=== PATIENT | female | born 1985 | race Caucasian/White ===

== ENCOUNTER 2016-07-12 11:53 | Emergency (ER) | payer OTHER ==
[~2016-07-12] VITALS: Ht 160 cm; Wt 126.0 kg
[~2016-07-12 11:53] MED LIST: AMO500 PO; CIPR7.5D4 LEFT EAR; IBUP-1542 PO; TRAM50TA2 PO
[2016-07-12 11:59] VITALS: Ht 160 cm; Wt 126.0 kg
[2016-07-12] MEDS ORDERED: ONDANSETRON (ODT) 4 MG TAB ODT STA (13:41)
[2016-07-12] MEDS ORDERED: ACETAMINOPHEN 325 MG TAB PO ONE (14:00)
[2016-07-12 14:03] LABS: URINE BLOOD (Dip) POC Negative (NEGATIVE)
--- NOTE | 2016-07-12 14:33 | RADRPT ---
PROCEDURE: US Pelvis CLINICAL INDICATION: Pelvic pain TECHNIQUE: Sonographic evaluation of the pelvis was performed utilizing both transabdominal and tr ansvaginal technique. Curved array transabdominal transducer technique as well as a high frequency endovaginal probe was utilized. Images were reviewed on the high-resolution PACS workstation. COMPARISON: None available FINDINGS: The uterus is normal in size, echogenicity, and morphology measuring 9.7 x 4.5 x 4.8 cm in dimension . The uterus is anteverted in normal position. The endometrium measures 9.3 mm in diameter. The normal trilaminar stripe of the endometrium is preserved. The right ovary measures 3.5 x 2.1 x 2.2 cm in dimension. The left ovary measures 5.5 x 4.2 x 4.5 c m in dimension, and demonstrates a 4.1 cm minimally complex cyst, likely hemorrhagic cyst. No ovari an torsion, adnexal mass or pelvic free fluid is identified. IMPRESSION: 1. Minimally complex 4.1 cm left ovarian cyst, likely hemorrhagic cyst. 2. Otherwise unremarkable ultrasound exam. RPTAT: HH .Aaron Carrasco MD, Date Time Electronically viewed and signed by .Aaron Carrasco MD, MD on 07/12/2016 14:33 .R/
[2016-07-12] MEDS ORDERED: ONDA4TAB14 PO (14:45)
[2016-07-12] MEDS ORDERED: PHEN-537 PO (14:45)
--- NOTE | 2016-07-12 15:03 | ERD ---
ER Documentation Chief Complaint Date/Time DATE: 07/12/16 TIME: 14:59 Chief Complaint PAINFUL URINATION,VAGINAL PAIN HPI Patient is a 31-year-old female who presents to the ED with dysuria and pelvic pain and nausea on and off for 1 week. She states that she has not gotten her menstrual cycle for the last 3 months usually her menstrual cycles are every month. Denies vaginal bleeding or abnormal vaginal discharge. States that she is currently sexually active with one partner. Does not use protection. Denies vomiting or diarrhea. Last bowel movement was today. Denies headache or dizziness. Denies chest pain or cough or shortness of breath or difficulty breathing. Denies leg pain or leg swelling. Denies recent travel or recent surgeries. No history of DVT or clots. Patient states that she might be and wants a test. ROS All systems reviewed and are negative except as per history of present illness. Medications Home Meds Active Scripts Ondansetron (Ondansetron Odt) 4 Mg Tab.rapdis, 4 MG PO Q6H Y for NAUSEA AND/OR VOMITING, #10 TAB Prov:RALPH MILLARD PA-C 07/12/16 Phenazopyridine Hcl* (Pyridium*) 100 Mg Tab, 100 MG PO TID Y for URINARY PAIN, # 8 TAB Prov:RALPH MILLARD PA-C 07/12/16 Ciprofloxacin Hcl/Dexameth (Ciprodex Otic Suspension) 7.5 Ml Drops.susp, 4 DROP LEFT EAR BID for 7 Days, EA Prov:MADISON FUCHS PA-C 08/22/14 Amoxicillin* (Amoxicillin*) 500 Mg Cap, 500 MG PO TID for 7 Days, CAP Prov:MADISON FUCHS PA-C 08/22/14 Ibuprofen* (Motrin*) 600 Mg Tab, 600 MG PO Q6, #14 TAB Prov:MADISON FUCHS PA-C 08/22/14 Tramadol HCl (Tramadol HCl) 50 Mg Tab, 50 MG PO Q4 Y for PAIN, #14 TAB Prov:MADISON FUCHS PA-C 08/22/14 Allergies Allergies: Coded Allergies: No Known Allergy (Unverified , 08/22/14) PMhx/Soc Medical and Surgical Hx: pt denies Surgical Hx History of Surgery: No Anesthesia Reaction: No Hx Neurological Disorder: No Hx Respiratory Disorders: Yes (ASTHMA) Hx Cardiac Disorders: No Hx Psychiatric Problems: No Hx Miscellaneous Medical Probl: No Hx Alcohol Use: No Hx Substance Use: No Hx Tobacco Use: No Smoking Status: Never smoker FmHx Family History: No coronary disease, No diabetes, No other Physical Exam Vitals Vital Signs Date Time Temp Pulse Resp B/P Pulse Ox O2 Delivery O2 Flow Rate FiO2 07/12/16 11:59 98.0 80 18 137/69 98 Physical Exam GENERAL: Well-developed, well-nourished female. Appears in no acute distress. HEAD: Normocephalic, atraumatic. EYES: Pupils are equally reactive bilaterally. EOMs grossly intact. No conjunctival erythema. ENT: Moist mucous membranes. No uvula deviation. No kissing tonsils. No exudates. NECK: Supple. No lymphadenopathy or thyromegaly. No meningismus. negative kernig. negative brudinski. LUNG: Clear to auscultation bilaterally. No rhonchi, wheezing, rales or coarse breath sounds. HEART: Regular rate and rhythm. No murmurs, rubs or gallops. ABDOMEN: No scars, ecchymosis or rashes noted. Soft, nontender, and nondistended. Positive bowel sounds in all four quadrants. No rebound tenderness , no guarding. (-) McBurneys point tenderness. No CVA tenderness. Generalized tenderness. No focal tenderness. BACK: No midline tenderness. Extremities: Equal pulses bilaterally. No peripheral clubbing, cyanosis or edema. No unilateral leg swelling. NEUROLOGIC: Alert and oriented. Moving all four extremities. 5/5 strength in all extremities. Normal speech. Steady gait. SKIN: Normal color. Warm and dry. No rashes or lesions. Capillary refill < 2 seconds Results 24 hrs Laboratory Tests Test 07/12/16 14:06 Bedside Urine pH (LAB) 6.5 Bedside Urine Protein (LAB) Negative Bedside Urine Glucose (UA) Negative Bedside Urine Ketones (LAB) Negative Bedside Urine Blood Negative Bedside Urine Nitrite (LAB) Negative Bedside Urine Leukocyte Esterase (L Negative Current Medications Medications (Trade) Dose Ordered Sig/Kari Route PRN Reason Start Time Stop Time Status Last Admin Dose Admin Ondansetron HCl (Zofran Odt) 4 mg ONCE STAT ODT 07/12/16 13:41 07/12/16 13:43 DC 07/12/16 14:26 Acetaminophen (Tylenol Tab) 650 mg ONCE ONCE PO 07/12/16 14:00 07/12/16 14:01 DC 07/12/16 14:26 Procedures/MDM ER COURSE: I kept the patient and/or family informed of laboratory and diagnostic imaging results throughout the emergency room course. IMAGING STUDIES [place] [id number] [place] [id number] Radiology Main Line: [phone] DIAGNOSTIC IMAGING REPORT Patient: FRED ARNDT : 1985 Age: 31 Sex: F MR #: [id number] DOS: 07/12/16 1341 Ordering MD: RALPH MILLARD PA-C Location: [facility] Room/Bed: PROCEDURE: US Pelvis CLINICAL INDICATION: Pelvic pain TECHNIQUE: Sonographic evaluation of the pelvis was performed utilizing both transabdominal and transvaginal technique. Curved array transabdominal transducer technique as well as a high frequency endovaginal probe was utilized. Images were reviewed on the high-resolution PACS workstation. COMPARISON: None available FINDINGS: The uterus is normal in size, echogenicity, and morphology measuring 9.7 x 4.5 x 4.8 cm in dimension. The uterus is anteverted in normal position. The endometrium measures 9.3 mm in diameter. The normal trilaminar stripe of the endometrium is preserved. The right ovary measures 3.5 x 2.1 x 2.2 cm in dimension. The left ovary measures 5.5 x 4.2 x 4.5 cm in dimension, and demonstrates a 4.1 cm minimally complex cyst, likely hemorrhagic cyst. No ovarian torsion, adnexal mass or pelvic free fluid is identified. IMPRESSION: 1. Minimally complex 4.1 cm left ovarian cyst, likely hemorrhagic cyst. 2. Otherwise unremarkable ultrasound exam. RPTAT: HH .Aaron Carrasco MD, Date Time Electronically viewed and signed by .Aaron Carrasco MD, MD on 07/12/2016 14: 33 .R/ CC: RALPH MILLARD PA-C LABORATORY STUDIES Urine dip was negative for nitrites, hematuria or leukocytes. Negative test MEDICAL DECISION MAKING: This is a 31-year-old female who presents with dysuria and pelvic pain and no periods for 3 months. Vital signs were reviewed. Patient is afebrile. Patient is not hypoxic. She is not toxic or ill-appearing. Her ultrasound is read by radiologist shows a ovarian cyst. Low suspicion for ovarian torsion. Urine was negative for infection. And her test was negative. Low suspicion for ovarian torsion, PID, tuboovarian abscess, ectopic , bowel obstruction, pyelonephritis, UTI, appendicitis, cervicitis, septic , molar . Low suspicion for pyelonephritis. Patient does not have vaginal bleeding and I did not think a blood work was necessary at this time. Low suspicion for anemia. DISCHARGE: At this time, patient is stable for discharge and outpatient management with no new complaints during the ER course. Patient was sent home with Zofran and Pyridium and a copy of all imaging reports. Patient will be discharged home with instructions to recheck for new or worsening symptoms such as fever, nausea , weakness, LOC and to follow up with primary care in the next 1-2 days. Patient was advised to return to the ER for any new or worsening symptoms. Plan was discussed and patient and/or family understands and agrees. Home instructions were given. Departure Diagnosis: Primary Impression: Dysuria Condition: Stable Patient Instructions: What Are Ovarian Cysts?, Ovarian Cyst Referrals: [facility] Usted se turner hecho un examen mdico de control que le indica que no est en janeth condicin que requiera tratamiento urgente en el Departamento de Emergencia. Un estudio ms profundo y el tratamiento de chan condicin pueden esperar sin ningn riesgo hasta que usted sea atendida/o en el consultorio de chan mdico o janeth cl margarito. Es responsabilidad suya arreglar janeth calin para el seguimiento del octavia. MANEJO DE CONDICIONES NO URGENTES EN EL FUTURO 1) Si usted tiene un mdico de atencin primaria: Usted debera llamar a chan mdico de atencin primaria antes de venir al departamento de emergencia. Despus de las horas de consultorio, chan doctor o chan asociado/a est disponible por telfono. El mdico o enfermero de rosette en el servicio telefnico puede asesorarle por marin medio para atender el problema, o octavia contrario se puede programar janeth calin. 2) Si usted no tiene un mdico de atencin primaria: Llame al mdico o clnica de referencia que aparece abajo glen las horas de consultorio para hacer janeth calin para que le vean. CLINICAS: [place] [phone] [facility] [phone] [facility] [phone] [place] [address] [phone] [place] [id number] [phone] [facility] [phone] Additional Instructions: Llame al doctor MAANA y lucie janeth CALIN PARA DENTRO DE 1-2 SIMON.Dgale a la secretaria que nosotros le instruimos hacer esta calin.Avise o llame si chan condicin se empeora antes de la calin. Regresa aqui si peor o no mejor. RALPH MILLARD PA-C Jul 12, 2016 15:03
== END 2016-07-12 14:51 | disposition home or self-care (01) ==
LOC: FTE 11:53
DX: R30.0 Dysuria (principal); R11.0 Nausea; J45.909 Unspecified asthma, uncomplicated; R10.2 Pelvic and perineal pain
CPT/HCPCS: 76830; 76856; 81003; Z7502; Z7610

== ENCOUNTER 2017-03-12 10:17 | Emergency (ER) | END 2017-03-12 15:34 | disposition home or self-care (01) ==